=== PATIENT | female | born 1985 | race African-American/Black ===

== ENCOUNTER 2022-04-05 19:21 | Inpatient (IN) | payer OTHER ==
[~2022-04-05] VITALS: Ht 170.2 cm; Wt 91.2 kg
[2022-04-05] MEDS ORDERED: HYDROMORPHONE 1 MG/1 ML DISP.SYRIN IV ONE (20:00)
[2022-04-05] MEDS: ONDANSETRON 4 MG/2 ML VIAL IV ONE (20:00)
[2022-04-05 20:17] LABS: HEMATOCRIT 39.4 % (31.2-41.9); MEAN CORPUSCULAR HEMOGLOBIN 27.1 uug (24.7-32.8); MEAN CORPUSCULAR VOLUME 82.3 fL (75.5-95.3); PLATELET COUNT (AUTO) 394 K/uL (179-408)
[2022-04-05] MEDS ORDERED: HYDROMORPHONE 1 MG/1 ML DISP.SYRIN ONE (20:27)
[2022-04-05 20:28] LABS: BILIRUBIN,DIRECT 0.1 mg/dL (0.0-0.2); BILIRUBIN,TOTAL 0.3 mg/dL (0.2-1.0); CREATININE 0.8 mg/dL (0.6-1.3); TOTAL PROTEIN, SERUM 8.5 g/dL (6.4-8.2)
[2022-04-05] MEDS ORDERED: MORPHINE SULFATE 4 MG/1 ML DISP.SYRIN ONE ×2 (20:39→22:35)
[2022-04-05] MEDS: MORPHINE SULFATE 4 MG/1 ML DISP.SYRIN IV ONE ×2 (20:42→22:39)
[2022-04-06] MEDS ORDERED: MORPHINE SULFATE 4 MG/1 ML DISP.SYRIN ONE ×3 (00:19→08:07)
[2022-04-06] MEDS: MORPHINE SULFATE 4 MG/1 ML DISP.SYRIN IV ONE ×2 (00:22→02:24)
[2022-04-06] MEDS: OXYTOCIN 10 UNIT/ML VIAL IV ONE (02:50)
[2022-04-06] MEDS ORDERED: REMEDY ESSENTIAL ZINC PASTE 113 GM TP PRN (04:00)
[2022-04-06] MEDS ORDERED: MAGNESIUM HYDROXIDE 30 ML LIQUID UDC PO PRN (04:00)
[2022-04-06] MEDS ORDERED: ACETAMINOPHEN 325 MG TABLET PO PRN (04:00)
[2022-04-06] MEDS ORDERED: HYDROCODONE/APAP 5-325MG TABLET PO PRN (04:00)
[2022-04-06] MEDS ORDERED: ONDANSETRON 4 MG/2 ML VIAL IV PRN (04:00)
[2022-04-06] MEDS ORDERED: KETAMINE HCL 500 MG/10 ML INJ ONE (04:09)
[2022-04-06] MEDS: KETAMINE HCL 500 MG/10 ML INJ IV ONE (04:19)
[2022-04-06 05:05] LABS: HEMATOCRIT 33.5 % (31.2-41.9); MEAN CORPUSCULAR HEMOGLOBIN 27.2 uug (24.7-32.8); MEAN CORPUSCULAR VOLUME 82.2 fL (75.5-95.3); PLATELET COUNT (AUTO) 349 K/uL (179-408)
[2022-04-06] MEDS: PANTOPRAZOLE SODIUM 40 MG TABLET.DR PO SCH (07:00)
[2022-04-06] MEDS: MORPHINE SULFATE 2 MG/1 ML DISP.SYRIN IV PRN ×2 (08:16→11:47)
[2022-04-06] MEDS ORDERED: PANTOPRAZOLE SODIUM 40 MG TABLET.DR PO ONE (08:40)
[2022-04-06 11:52] VITALS: BP 94/55
[2022-04-06 14:27] LABS: HEMATOCRIT 33.9 % (31.2-41.9)
[2022-04-06 15:04] VITALS: BP 106/55
== END 2022-04-06 18:05 | disposition home or self-care (01) | DRG 564 ==
LOC: ER 21:01 → MEDSURG3 04-06 08:20 → TELE3 04-06 11:25
PROVIDERS: ADMIT Student in an Organized Health Care Education/Training Program; ATTEND Nurse Practitioner Acute Care
DX: O03.6 Delayed or excessive hemorrhage following complete or unspecified spontaneous abortion (principal); D62 Acute posthemorrhagic anemia; F41.0 Panic disorder [episodic paroxysmal anxiety]; O09.521 Supervision of elderly multigravida, first trimester; Z3A.00 Weeks of gestation of pregnancy not specified; Z87.891 Personal history of nicotine dependence; Z81.8 Family history of other mental and behavioral disorders; Z84.89 Family history of other specified conditions; M48.00 Spinal stenosis, site unspecified
CPT/HCPCS: 36415; 76856; 85018; 85025; 86850; 86900; 86901; A4663; G0378; J1170; J2270; J2590; J3490; J7040

== ENCOUNTER 2022-07-16 02:49 | Emergency (ER) | payer OTHER ==
[~2022-07-16] VITALS: Ht 170.2 cm; Wt 90.7 kg
--- NOTE | 2022-07-16 03:10 | NUR ---
Dr Long at bedside, MSE in progress
[2022-07-16] MEDS ORDERED: LORAZEPAM 1 MG TABLET ONE (03:27)
[2022-07-16] MEDS ORDERED: HYDROMORPHONE 2 MG/1 ML DISP.SYRIN ONE (03:28)
[2022-07-16] MEDS ORDERED: LORAZEPAM 0.5 MG TABLET PO ONE (03:30)
[2022-07-16] MEDS ORDERED: HYDROMORPHONE 1 MG/1 ML DISP.SYRIN IM ONE (03:30)
[2022-07-16] MEDS ORDERED: LORA-259 PO (03:35)
[2022-07-16] MEDS ORDERED: OXYC-128 PO (03:35)
--- NOTE | 2022-07-16 03:42 | NUR ---
Patient discharged to home in stable condition. Written and verbal after care instructions given. Patient verbalizes understanding of instructions. Stressed follow up or return to ER for worsening s/s. Patient is a/ox4, NAD noted. Patient is able to walk with steady gait
[2022-07-16 03:44] VITALS: BP 130/80
== END 2022-07-16 03:45 | disposition home or self-care (01) ==
LOC: ER 02:57
DX: M54.50 Low back pain, unspecified (principal); G89.29 Other chronic pain; F41.9 Anxiety disorder, unspecified; F41.0 Panic disorder [episodic paroxysmal anxiety]
CPT/HCPCS: 99283; 96372; J1170; A4663

== ENCOUNTER 2022-07-18 01:11 | Emergency (ER) | payer OTHER ==
[~2022-07-18] VITALS: Ht 170.2 cm; Wt 88.9 kg
[~2022-07-18 01:11] MED LIST: LORA-259 PO; OXYC-128 PO
--- NOTE | 2022-07-18 02:50 | NUR ---
Patient walked to ER with steady gait, NAD noted
--- NOTE | 2022-07-18 02:55 | NUR ---
Dr. lemos in room for katie.
--- NOTE | 2022-07-18 02:57 | NUR ---
pt c/o of rle pain.
[2022-07-18] MEDS ORDERED: CYCLOBENZAPRINE HCL 10 MG TABLET ONE (03:08)
[2022-07-18] MEDS ORDERED: HYDROMORPHONE 1 MG/1 ML DISP.SYRIN ONE (03:08)
--- NOTE | 2022-07-18 03:14 | NUR ---
pt is refusing dilaudid 1mg states she wants 4mg. notified dr. lemos he states he will not give anymore. he will speak with the pt.
[2022-07-18] MEDS ORDERED: HYDROMORPHONE 1 MG/1 ML DISP.SYRIN IM ONE (03:15)
[2022-07-18] MEDS ORDERED: CYCLOBENZAPRINE HCL 10 MG TABLET PO ONE (03:15)
[2022-07-18 03:24] LABS: HEMATOCRIT 36.9 % (31.2-41.9); MEAN CORPUSCULAR HEMOGLOBIN 27.2 uug (24.7-32.8); MEAN CORPUSCULAR VOLUME 81.4 fL (75.5-95.3); PLATELET COUNT (AUTO) 382 K/uL (179-408)
[2022-07-18 03:30] LABS: CREATININE 0.8 mg/dL (0.6-1.3); POTASSIUM 3.6 mmol/L (3.5-5.1)
[2022-07-18] MEDS ORDERED: MORPHINE SULFATE 4 MG/1 ML DISP.SYRIN ONE (03:39)
[2022-07-18] MEDS ORDERED: MORPHINE SULFATE 4 MG/1 ML DISP.SYRIN IM ONE (03:45)
[2022-07-18] MEDS ORDERED: METH4TAB3 PO (04:26)
[2022-07-18] MEDS ORDERED: CYCL10TA9 PO (04:26)
--- NOTE | 2022-07-18 04:43 | NUR ---
Patient discharged to home in stable condition. Written and verbal after care instructions given. Patient verbalizes understanding of instructions. Stressed follow up or return to ER for worsening s/s.
[2022-07-18 04:50] VITALS: BP 130/78
[2022-07-19] MEDS ORDERED: HYDR4TAB4 PO (01:21)
== END 2022-07-18 04:51 | disposition home or self-care (01) ==
LOC: ER 01:13
DX: M54.41 Lumbago with sciatica, right side (principal); G89.29 Other chronic pain; F41.9 Anxiety disorder, unspecified
CPT/HCPCS: 99283; 80048; 85025; 85379; 84702; 36415; 96372; J2270; A4663; J1170

== ENCOUNTER 2022-07-18 22:42 | Emergency (ER) | payer OTHER ==
[~2022-07-18] VITALS: Ht 170.2 cm; Wt 88.9 kg
[~2022-07-18 22:42] MED LIST changes: +CYCL10TA9 PO; +METH4TAB3 PO
[2022-07-18] MEDS ORDERED: ONDANSETRON ODT 4 MG TAB.RAPDIS SL ONE (23:30)
[2022-07-18] MEDS ORDERED: HYDROMORPHONE HCL 2 MG TABLET PO ONE (23:30)
[2022-07-18] MEDS ORDERED: ONDANSETRON ODT 4 MG TAB.RAPDIS ONE (23:36)
[2022-07-18] MEDS ORDERED: HYDROMORPHONE HCL 2 MG TABLET ONE (23:37)
--- NOTE | 2022-07-19 00:20 | NUR ---
Patient states pain meds not effective. Dr Clark into re eval patient
[2022-07-19] MEDS ORDERED: HYDROMORPHONE HCL 2 MG TABLET PO ONE (00:30)
[2022-07-19] MEDS ORDERED: HYDROMORPHONE HCL 2 MG TABLET ONE (00:34)
[2022-07-19] MEDS ORDERED: HYDR4TAB4 PO (01:21)
[2022-07-19 01:32] VITALS: BP 140/82
== END 2022-07-19 01:33 | disposition home or self-care (01) ==
LOC: ER 22:42
DX: G89.29 Other chronic pain (principal); M54.42 Lumbago with sciatica, left side; M54.41 Lumbago with sciatica, right side; F41.9 Anxiety disorder, unspecified; R03.0 Elevated blood-pressure reading, without diagnosis of hypertension
CPT/HCPCS: A4663; Q0162